=== PATIENT | male | born 1975 | race Caucasian/White ===

== ENCOUNTER 2023-07-01 09:43 | Outpatient (OUT) | payer OTHER, SELFPAY ==
[2023-07-01 10:49] LABS: Alanine Aminotransferase 28 U/L (16-63); Alkaline Phosphatase 54 U/L (46-116); Anion Gap 9.2; Aspartate Amino Transferase 16 U/L (15-37); BUN Creatinine Ratio 12.2; Bilirubin Total 0.4 mg/dL (0.2-1.0); Calcium 9.2 mg/dL (8.5-10.1); Chloride 104 mmol/L (98-107); Estimated GFR (African America >60 (>=60); Estimated GFR (Non-African Ame >60 (>=60); Globulin 3.4 g/dL; Glucose 94 mg/dL (74-106); Potassium 4.2 mmol/L (3.5-5.1); Sodium 139 mmol/L (136-145); Total Protein 7.4 g/dL (6.4-8.2)
[2023-07-01 10:50] LABS: Albumin Globulin Ratio 1.2; Chol HDL Ratio 8.3; Cholesterol 292 mg/dL (<=200); HDL Cholesterol 35 mg/dL (40-60); Triglycerides 298 mg/dL (<=150); VLDL CHOLESTEROL 59.6 mg/dL
== END 2023-07-01 09:44 | disposition home or self-care (01) ==
LOC: LAB 09:47
PROVIDERS: PCP Family Medicine; Visit Provider Family Medicine
DX: Z00.00 Encounter for general adult medical examination without abnormal findings (principal)
CPT/HCPCS: 36415; 80053; 80061

== ENCOUNTER 2025-06-30 09:26 | Outpatient (OUT) | payer OTHER, SELFPAY ==
--- NOTE | 2025-06-30 | XR_ITS ---
[address] [address] Patient Name: MOE MESSINA MRN: [id number] date: 1975 Sex: M Assigned Patient Location: RAD Current Patient Location: [facility] Accession/Order Number: [id number] Exam Date: 06/30/2025 09:45 Report Date: 06/30/2025 10:27 At the request of: JUAN JOSÉ BERNAL DO Procedure: XR shoulder RT min 2V RIGHT SHOULDER - - 4 views CLINICAL HISTORY: M25.511 pain in right shoulder COMPARISON: None FINDINGS: Joint spaces appear maintained without acute bony process. Minimal degenerative change. XR/XR shoulder RT min 2V IMPRESSION: MINIMAL DEGENERATIVE CHANGE WITHOUT ACUTE BONY PROCESS. Impression dictated by: Lalo Charles Jr., D.O. 06/30/2025 10:27 AM Dictation Location: [place] [address] Electronically authenticated by: [id number] Y Date: 06/30/2025 10:27
--- OUTSIDE RECORDS SUMMARY | 2025-06-30 09:28 | XMS_ITS | Encounter Summary ---
Author Organization [facility], [employer] Sys tem Address [id number] [address] [place] [address] Care Team Providers Care Tape Weaver Name Role Phone GeorgeJohn Primary Care Provider + [phone] Reason for Visit * Reason Onset Date Comments Med Refill 09/08/2023 Encounter Details Date Type Department Care Team (Late st Contact Info) Description 09/08/2023 Refill [facility] - Family Medicine [address] [place] [address] Clara Vasquez CMA Cigarette smoker Social History Tobacco Use Types Packs/Day Years Used Date Smoking Tobacco: Every Day Cigarettes 0.5 30 Smokeless Tobacco: Never Comments:Smoked 1 PPD for ye ars 10 years Alcohol Use Standard Drinks/Week Comments Not Currently 0 (1 standard drink = 0.6 oz pur e alcohol) Social Connection and Isolat ion Panel [NHANES] Answer Date Recorded In a typical week, how many times do you talk on the phone with family, friends, or neighbors? More than three times a week 07/09/2023 How often do you get togethe r with friends or relatives? Once a week 07/09/2023 How often do you attend chur ch or confucianism services? Never 07/09/2023 Do you belong to any clubs o r organizations such as evangelical groups, unions, fraternal or athletic groups, or school groups? No 07/09/2023 How often do you attend meet ings of the clubs or organizations you belong to? Never 07/09/2023 Are you , , di vorced, , never , or living with a partner? 07/09/2023 AUDIT-C Answer Date Recorded Q1: How often do you have a drink containing alcohol? Never 07/09/2023 Q2: How many drinks containi ng alcohol do you have on a typical day when you are drinking? Patient does not drink Q3: How often do you have si x or more drinks on one occasion? Never 07/09/2023 Overall Financial Resource Strain (CARDIA) Answe r Date Recorded How hard is it for you to pa y for the very basics like food, housing, medical care, and heating? Not hard at all 07/09/2023 PHQ-2 Answer Date Recorded Total Score 0 07/09/2023 [facility] Occupat ional Health - Occupational Stress Questionnaire Answer Date Recorded Do you feel stress - tense, restless, nervous, or anxious, or unable to sleep at night because your mind is troubled all the time - these days? Not at all 07/09/2023 Exercise Vital Sign Answer Date Recorde d On average, how many days pe r week do you engage in moderate to strenuous exercise (like a brisk walk)? 1 day 07/09/2023 On average, how many minutes do you engage in exercise at this level? 90 min 07/09/2023 PRAPARE - Transportation Answer Date Re corded In the past 12 months, has l ack of transportation kept you from medical appointments or from getting medications? No 06/21 In the past 12 months, has l ack of transportation kept you from meetings, work, or from getting things needed for daily living? No 07/09/2023 Housing Instability Answer Date Recorde d Are you worried or concerned that in the next two months you may not have stable housing that you own, rent or stay in as a part of a household? No 07/09/2023 Childcare Answer Date Recorded Do problems getting child ca re make it difficult for you to work or study? No 07/09/2023 Employment Answer Date Recorded Do you need help finding a [facility] career center and/or a training program? No 07/09/2023 Hunger Screening Answer Date Recorded Within the past 12 months we worried whether our food would run out before we got money to buy more. Never True 07/09/2023 Within the past 12 months th e food we bought just didn't last and we didn't have money to get more. Never True 07/09/2023 Purpose - Life Answer Date Recorded I have a purpose and direction in my life. Stron gly Agree 07/09/2023 Sex and Gender Information Value Date Recorded Sex Assigned at Not on file Legal Sex Male 11:58 AM EDT Gender Identity Not on file Sexual Orientation Not on file documented as of this encounter Miscellaneous Notes * Telephone Encounter - Clara Vasquez CMA - 09/08/2023 4:42 PM EST Patient needs next set up for the chantix documented in this encounter Plan of Treatment Upcoming Encounters Date Type Department Care Team (Late st Contact Info) Description 09/23/2025 10:00 AM EST Office Visit [facility] - [facility] Medicine [address] [place] [address] John Vazquez DO [address] [facility] [place] [place] [address] documented as of this encounter Visit Diagnoses Diagnosis Cigarette smoker Tobacco use disorder documented in this encounter Additional Health Concerns Assessment Noted Time PHQ-9 Depression Total Score: 0 07/09/20 23 8:34 AM EDT A Body Mass Index follow-up plan has been documented for the patient 10/03/2022 10:28 AM EST documented as of this encounter Care Teams Tape Weaver Relationship Specialty Start Date End Date John Vazquez DO [address] [facility] [place] [place] [address] PCP - General Family Medicine 10/03/22 documented as of this encounter
--- OUTSIDE RECORDS SUMMARY | 2025-06-30 09:28 | XMS_ITS | Encounter Summary ---
Author Organization [employer] Sys tem Address [id number] [address] [place] [address] Care Team Providers Care Direct Care Counselor Name Role Phone GeorgeJohn Primary Care Provider + [phone] Encounter Details Date Type Department Care Team (Late st Contact Info) Description 02/18/2025 Telephone [facility] - Family Medicine [address] [place] [phone] Mihaela Rodríguez CMA Social History Tobacco Use Types Packs/Day Years [...] often do you attend chur ch or sabianist services? Never 07/09/2023 Do you belong to any clubs o r organizations such as methodist groups, unions, fraternal or athletic groups, or [...] you are drinking? Patient does not drink 3 Q3: How often do you have si x or more drinks on one occasion? Never 07/09/2023 Overall Financial Resource Strain (CARDIA) Answe r Date Recorded How hard is it for you to pa y for the very basics like food, housing, medical care, and heating? Not hard at all 07/09/2023 PHQ-2 Answer Date Recorded Total Score 0 02/15/2025 [facility] of Occupat ional Health - Occupational Stress [...] Recorded Do you need help finding a [facility] career [facility] and/or a training program? No 07/09/2023 Hunger Screening Answer Date Recorded Within the past 12 months we worried whether our food would run out before we got money to buy more. Never True 02/15/2025 Within the past 12 months th e food we bought just didn't last and we didn't have money to get more. Never True 02/15/2025 Purpose - Life Answer Date Recorded I have a purpose and direction in my life. Stron gly Agree 07/09/2023 Sex and Gender Information Value Date Recorded Sex Assigned at Not on file Legal Sex Male 11:58 AM EDT Gender Identity Not on file Sexual Orientation Not on file documented as of this encounter Miscellaneous Notes * Telephone Encounter - Mihaela Rodríguez CMA - 02/18/2025 9:10 AM EDT ----- Message from John Vazquez DO sent at 02/17/2025 5:18 PM EDT ----- His cholesterol was high at 239. His triglycerides were also high at 175. The LDL, or bad cholesterol was also high at 154. His cardiovascular risk of heart attack and stroke in the next 10 years is intermediate risk at 9.9%. A statin is recommended. I will send 1 in if he agrees. His CMP was essentially normal ----- Message ----- From: Lab, Background User Sent: 02/15/2025 10:06 PM EDT To: John Vazquez DO documented in this encounter Plan of Treatment Upcoming Encounters Date Type Department Care Team (Late st Contact Info) Description 09/23/2025 10:00 AM EST Office Visit [facility] - Family Medicine [address] [place] [address] John Vazquez DO [address] [facility] [place] [address] documented as of this encounter Visit Diagnoses Not on filedocumented in this encounter Additional Health Concerns Assessment Noted Time PHQ-9 Depression Total Score: 0 02/16/20 25 3:56 PM EDT A Body Mass Index follow-up plan has been documented for the patient 10/03/2022 10:28 AM EST documented as of this encounter Care Teams Direct Care Counselor Relationship Specialty Start Date End Date John Vazquez DO [address] [facility] [place] [address] PCP - General Family Medicine 10/03/22 documented as of this encounter
--- OUTSIDE RECORDS SUMMARY | 2025-06-30 09:28 | XMS_ITS | Encounter Summary ---
Author Organization [facility] [employer] s tem Address [id number] [address] [place] [address] Care Team Providers Care Cupola Man Name Role Phone John Vazquez DO Primary Care Provider [phone] Encounter Details Date Type Department Care Team ([facility] Contact Info) Description 07/01/2023 [facility] [address] [place] [phone] Tiffanie Rojas CMA Preventative health care Social History Tobacco Use Types Packs/Day Years Used Date Smoking Tobacco: Every Day Cigarettes Smokeless Tobacco: Never Alcohol Use Standard Drinks/Week Comments Not Currently 0 (1 standard drink = 0.6 oz pur e alcohol) PHQ-2 Answer Date Recorded Total Score 0 11/18/2022 Childcare Answer Date Recorded Childcare Unknown 03/31/2019 Employment Answer Date Recorded Employment Unknown 03/31/2019 Sex and Gender Information Value Date Recorded Sex Assigned at Not on file Legal Sex Male 11:58 AM EDT Gender Identity Not on file Sexual Orientation Not on file documented as of this encounter Plan of Treatment Upcoming Encounters Date Type Department Care Team (Late Contact Info) Description 09/23/2025 10:00 AM EST Office Visit [facility] Internal Medicine - Family Medicine [address] [place] [phone] John Vazquez DO [address] [place] [address] documented as of this encounter Procedures Procedure Name Priority Date/Time Associated Diagnosis Comments LIPID PROFILE Routine 07/01/2023 Preventative health care COMPREHENSIVE METABOLIC PANEL Routine 07/01/2023 Preventative health care documented in this encounter Results * Comprehensive metabolic panel (07/01/2023) External Albumin 4 3.4 - 5.0 MAN UALLY TRANSCRIBED RESULTS External Alt Sgpt 28 16 - 63 MANUALLY TRANSCRIBED RESULTS External Anion Gap 9.2 MANUALLY TRANSCRIBED RESULTS External Ast 16 15 - 37 MANUALL Y TRANSCRIBED RESULTS External Blood Urea Nitrogen Bun 15 7 - 18 MANUALLY TRANSCRIBED RESULTS External Calcium Ca 9.2 8.5 - 10.1 MANUALLY TRANSCRIBED RESULTS External Chloride 104 98 - 107 MANUALLY TRANSCRIBED RESULTS External Co2 / Carbon Dioxide 30 21 - 32 MANUALLY TRANSCRIBED RESULTS External Creatinine 1.23 0.7 - 1.30 MANUALLY TRANSCRIBED RESULTS External Gfr Amer >60 >60 MANUALLY TRANSCRIBED RESULTS External Gfr Non Amer >60 >60 MANUALLY TRANSCRIBED RESULTS External Alkaline Phosphatase 54 46 - 116 MANUALLY TRANSCRIBED RESULTS External Glucose Fasting Or Random (Fbs) 94 74 - 106 MANUALLY TRANSCRIBED RESULTS External Potassium K 4.2 3.5 - 5.1 MANUALLY TRANSCRIBED RESULTS External Sodium Na 139 136 - 145 MANUALLY TRANSCRIBED RESULTS Total Bilirubin 0.4 0.2 - 1.0 MANU ALLY TRANSCRIBED RESULTS External Total Protein 7.4 6.4 - 8.2 MANUALLY TRANSCRIBED RESULTS Blood 07/01/2023 John Vazquez DO LAB BLOOD ORDERABLES Final R esult MANUALLY TRANSCRIBED RESULTS * (ABNORMAL) Lipid panel (07/01/2023) External Cholesterol 292(A) 0 - 200 MANUALLY TRANSCRIBED RESULTS External Cholesterol:Hdl 8.3(A) 4.4 - 7.1 MANUALLY TRANSCRIBED RESULTS External Hdl Cholesterol 35(A) 40 - 60 MANUALLY TRANSCRIBED RESULTS External Ldl (Calc) 198(A) 0 - 100 MANUALLY TRANSCRIBED RESULTS External Triglycerides 298(A) 0 - 150 MANUALLY TRANSCRIBED RESULTS External Very Low Lipoprotein 59.6 MANUALLY TRANSCRIBED RESULTS Blood 07/01/2023 us John Vazquez DO LAB BLOOD ORDERABLES Final R esult MANUALLY TRANSCRIBED RESULTS documented in this encounter Visit Diagnoses Diagnosis Preventative health care Routine general medical examination at a health care facility documented in this encounter Additional Health Concerns Assessment Noted Time PHQ-9 Depression Total Score: 0 11/18/19 23 4:36 PM EST A Body Mass Index follow-up plan has been documented for the patient 10/03/2022 10:28 AM EST documented as of this encounter Care Teams Cupola Man Relationship Specialty Start Date End Date John Vazquez DO [address] [facility] [place] [address] PCP - General Family Medicine 10/03/22 documented as of this encounter
--- OUTSIDE RECORDS SUMMARY | 2025-06-30 09:28 | XMS_ITS | Clinical Summary ---
Author Organization [facility] Address [id number] [address] [place] [address] Care Team Providers Care Marquetry Worker Name Role Phone John Vazquez Primary Care Provider Allergies No known active allergies Medications sildenafiL (VIAGRA) 100 mg tablet Take 1 tablet (100 mg total) by mouth daily as needed for erectile dysfunction. 9 tablet 5 5 Active rosuvastatin (CRESTOR) 5 mg tabletIndications:M ixed hyperlipidemia Take 1 tablet (5 mg total) by mouth nightly. 90 tablet 3 5 Active naproxen (NAPROSYN) 500 mg tablet TAKE 1 TABLET (500MG TOTAL) BY MOUTH IN THE MORNING AND TAKE 1 TABLET IN THE EVENING WITH MEALS 60 tablet 2 5 Active Active Problems Problem Noted Date Diagnosed Date Erectile dysfunction 07/09/2023 Lateral epicondylitis 10/03/2022 Seasonal allergies 10/03/2022 Tobacco dependence syndrome 10/03/2022 Mixed hyperlipidemia 06/26/2018 Anxiety 04/09/2017 Insomnia 08/09/2016 Obstructive sleep apnea of adult 02/19/2016 Resolved Problems Problem Noted Date Diagnosed Date Resolved Date Class 1 obesity due to exces s calories with serious comorbidity and body mass index (BMI) of 31.0 to 31.9 in adult 07/09/2023 03/21/2025 Cigarette smoker 07/09/2023 03/21/2025 Obesity with body mass index 30 or greater 10/03/2022 03/21/2025 Encounters Date Type Department Care Team Description 06/06/2025 Orders Only [facility] - Family Medicine [address] [place] [address] George John Salgado, DO Tear of right glenoid labrum, subsequent encounter (Primary Dx); Right shoulder pain, unspecified chronicity 06/02/2025 Telephone [facility] - Family Medicine [address] [place] [address] Clara Vasquez CMA 05/21/2025 Refill [facility] - Family Medicine [address] [place] [address] George John Salgado, 05/18/2025 Orders Only [facility] - [facility] [address] [place] [address] George John Salgado, Tear of right glenoid labrum, subsequent encounter (Primary Dx) 05/18/2025 [facility] [address] [place] [address] George John Salgado, DO MR shoulder right without contrast 05/13/2025 7:25 AM EDT - 05/13/2025 11:59 PM EDT Hospital Encounter [facility] - [facility] [address] [facility] [address] John Vazquez, Right shoulder pain, unspecified chronicity Discharge Disposition: Home 05/13/2025 Travel 04/25/2025 2:00 PM EDT [facility] [address] [place] [address] George John Salgado, Right shoulder pain, unspecified chronicity (Primary Dx); Paresthesia of right upper extremity 04/25/2025 Travel 04/14/2025 [facility]phone [facility] [address] [place] [address] Akhil Bartlett CMA from Last 3 Months Immunizations Immunization Administration Dates Next Due DTaP 04/14/2014 Family History Medical History Relation Name Comments No Known Problems Brother No Known Problems Daughter No Known Problems Father No Known Problems Maternal Grandmother ag e 86 in 2022 No Known Problems Mother No Known Problems Sister No Known Problems Son Relation Name Status Comments Brother Alive Daughter Alive Father Alive Maternal Grandfather Maternal Grandmother Alive Mother Alive Paternal Grandfather Paternal Grandmother Sister Alive Son Alive Social History Tobacco Use Types Packs/Day Years Used Date Smoking Tobacco: Former Cigarettes 0.5 30 Q uit: 01/18/2025 Smokeless Tobacco: Never Tobacco Cessation:Counseling Given: Not Answered Comments:Smoked 1 PPD for years 10 years Alcohol Use Standard Drinks/Week Comments Not Currently 0 (1 standard drink = 0.6 oz pur e alcohol) [facility] Utilities Answer Date Recorded In the past 12 months has e electric, gas, oil, or water company threatened to shut off services in your home? No 03/21/2025 Social Connection and Isolat ion Panel [NHANES] Answer Date Recorded In a typical week, how many times do you talk on the phone with family, friends, or neighbors? More than three times a week 07/09/2023 How often do you get togethe r with friends or relatives? Once a week 07/09/2023 How often do you attend chur ch or yazdanism services? Never 07/09/2023 Do you belong to any clubs o r organizations such as quaker groups, unions, fraternal or athletic groups, or [...] PHQ-2 Answer Date Recorded Total Score 0 04/25/2025 [facility] - Occupational Stress Questionnaire Answer Date Recorded [...] Recorded Do you need help finding a [facility] career center and/or a training program? No 07/09/2023 Hunger Screening Answer Date Recorded Within the past 12 months we worried whether our food would run out before we got money to buy more. Never True 04/25/2025 Within the past 12 months th e food we bought just didn't last and we didn't have money to get more. Never True 04/25/2025 Purpose - Life Answer Date Recorded I have a purpose and direction in my life. Stron gly Agree 07/09/2023 Sex and Gender Information Value Date Recorded Sex Assigned at Not on file Legal Sex Male 11:58 AM EDT Gender Identity Not on file Sexual Orientation Not on file Last Filed Vital Signs Vital Sign Reading Time Taken Comments Blood Pressure 128/88 04/25/2025 2:12 PM EDT Pulse 76 04/25/2025 2:12 PM EDT Temperature 36.2 C (97.2 F) 04/25/2025 2:12 PM EDT Respiratory Rate 18 04/25/2025 2:12 PM EDT Oxygen Saturation 99% 04/25/2025 2:12 PM EDT Inhaled Oxygen Concentration - - Weight 96.9 kg (213 lb 9.6 oz) 04/25/2025 2:12 P M EDT Height 175.3 cm (5' 9.02 ) 04/25/2025 2:12 PM ED T Body Mass Index 31.53 04/25/2025 2:12 PM EDT Plan of Treatment Upcoming Encounters Date Type Department Care Team (Late st Contact Info) Description 09/23/2025 10:00 AM EST Office Visit [facility] - Family Medicine [address] [place] [address] John Vazquez DO [address] [place] [address] Health Maintenance Due Date Last Done Comments Adult BMI Follow Up Plan 1994 Influenza Vaccine 06/20/2025 COVID-19 Vaccine ( season) 2025 12/25/2020 Postponed from 06/20 (Vaccine Not Available) DTaP,Tdap and Td Vaccines (2 - Tdap) 03/21/2026 04/14/2014 Postponed from 04/14 (Patient Refused) Adult BMI Screening 04/25/2026 04/25/2025 Depression Screening 04/25/2026 04/25/2025 Tobacco Screening 04/25/2026 04/25/2025 Colon Cancer Screening 3 Year Cologuard 04/13/2028 04/13/2025, 04/08/2025 Medical Devices Not on file Procedures Procedure Name Priority Date/Time Associated Diagnosis Comments MR SHOULDER RT WO CONT Routine 05/13/2025 8:55 AM EDT Right shoulder pain, unspecified chronicity COLOGUARD NON-[facility] Routine 04/08/2025 8:00 AM EDT Screen for colon cancer from Last 3 Months Results * MR shoulder right without contrast (05/13/2025 8:55 AM EDT) Anatomical Region Laterality Modality MSK, Shoulder, Upper Extremities, MSK Covera Rig ht Magnetic Resonance 05/17/2025 10:3 7 AM EDT Narrative 05/17/2025 10:48 AM EDT MR SHOULDER RT WO CONT CLINICAL INFORMATION: Shoulder pain.. COMPARISON: None. PROCEDURE: Axial, oblique coronal, and oblique sagittal long TR images of the shoulder were obtained. FINDINGS: ROTATOR CUFF AND ASSOCIATED STRUCTURES Biceps Tendon: The biceps tendon is normally situated within the bicipital groove. No complete or partial biceps tendon tear is present. Rotator cuff: There is no complete or bursal/articular sided partial rotator cuff tear. The subscapularis constituent of the rotator cuff is intact. Supraspinatus insertional tendinopathy is appreciated. Musculature: There is no muscular tear, contusion, or atrophy. Bursa: No bursal effusion or thickening is seen. OSSEOUS STRUCTURES Acromioclavicular joint: There are mild degenerative changes of the acromioclavicular joint. A type 1 acromion configuration is noted. There is lateral acromial downsloping. Bones: No Hill-Sachs, reverse Hill-Sachs, or bony Bankart lesions are seen. There are no fractures or regions of abnormal bone marrow signal intensity. GLENOHUMERAL JOINT Joint: There is no glenohumeral joint effusion. Cartilage: No focal hyaline cartilage defects are noted. Labrum: Multiple juxta labral cysts are appreciated along the posterior inferior rim. This indicates an occult posterior inferior labral tear. For example please see sequence 6 image 19 Other support structures: No capsular or ligamentous abnormality is seen. IMPRESSION: * Posterior inferior labral tear with juxta labral cyst is noted. * Supraspinatus insertional tendinopathy. Please refer to the above report for full description of all the findings. Finalized by Maryann Oneil MD on 05/17/2025 10:48 AM Procedure Note Maryann Oneil MD - 05/17/2025 MR SHOULDER RT WO CONT CLINICAL INFORMATION: Shoulder pain.. COMPARISON: None. PROCEDURE: Axial, oblique coronal, and oblique sagittal long TR images ofthe shoulder were obtained. FINDINGS: ROTATOR CUFF AND ASSOCIATED STRUCTURES Biceps Tendon: The biceps tendon is normally situated within the bicipitalgroove. No complete or partial biceps tendon tear is present. Rotator cuff: There is no complete or bursal/articular sided partialrotator cuff tear. The subscapularis constituent of the rotator cuff isintact. Supraspinatus insertional tendinopathy is appreciated. Musculature: There is no muscular tear, contusion, or atrophy. Bursa: No bursal effusion or thickening is seen. OSSEOUS STRUCTURES Acromioclavicular joint: There are mild degenerative changes of theacromioclavicular joint. A type 1 acromion configuration is noted. Thereis lateral acromial downsloping. Bones: No Hill-Sachs, reverse Hill-Sachs, or bony Bankart lesions areseen. There are no fractures or regions of abnormal bone marrow signalintensity. GLENOHUMERAL JOINT Joint: There is no glenohumeral joint effusion. Cartilage: No focal hyaline cartilage defects are noted. Labrum: Multiple juxta labral cysts are appreciated along the posteriorinferior rim. This indicates an occult posterior inferior labral tear. Forexample please see sequence 6 image 19 Other support structures: No capsular or ligamentous abnormality isseen. IMPRESSION: * Posterior inferior labral tear with juxta labral cyst is noted. * Supraspinatus insertional tendinopathy. Please refer to the abovereport for full description of all the findings. Finalized by Maryann Oneil MD on 05/17/2025 10:48 AM us John Vazquez DO [facility] MRI ORDERABLES Final Res ult * Cologuard [facility] (04/08/2025 8:00 AM EDT) EXTERNAL COLOGUARD Negative Negative 2024 3:44 PM EDT [facility] (CLIA #:[id number]) Comment: The Cologuard (TM) test was performed on this specimen. NEGATIVE TEST RESULT. A negative Cologuard result indicates a low likelihood that a colorectal cancer (CRC) or advanced adenoma (adenomatous polyps with more advanced pre-malignant features) is present. The chance that a person with a negative Cologuard test has a colorectal cancer is less than 1 in 1500 (negative predictive value >99.9%) or has an advanced adenoma is less than 5.3% (negative predictive value 94.7%). These data are based on a prospective cross-sectional study of 10,000 individuals at average risk for colorectal cancer who were screened with both Cologuard and colonoscopy. (Adelso Jacobson al, N Engl J Med 2014;370(14):1286- 1297) The normal value (reference range) for this assay is negative. COLOGUARD RE-SCREENING RECOMMENDATION: Periodic colorectal cancer screening is an important part of preventive healthcare for asymptomatic individuals at average risk for colorectal cancer. Following a negative Cologuard result, the [place] Cancer Society and U.S. Multi-Society Task Force screening guidelines recommend a Cologuard re-screening interval of 3 years. References: [place] Cancer Society Guideline for Colorectal Cancer Screening: https://www.cancer.org/cancer/ubdcq-sjxqhw-icbexm/kvolzduci-iojgcqkor-qmmoidz/ac s-rec ommendations.html.; Swapnil DK, Leilani CR, Laya OlveraK, Colorectal Cancer Screening: Recommendations for Physicians and Patients from the U.S. Multi-Society Task Force on Colorectal Cancer Screening , Am J Gastroenterology 2017; 112:2064-2305. TEST DESCRIPTION: Composite algorithmic analysis of stool DNA-biomarkers with hemoglobin immunoassay. Quantitative values of individual biomarkers are not reportable and are not associated with individual biomarker result reference ranges. Cologuard is intended for colorectal cancer screening of adults of either sex, 45 years or older, who are at average-risk for colorectal cancer (CRC). Cologuard has been approved for use by the U.S. FDA. The performance of Cologuard was established in a cross sectional study of average-risk adults aged 50-84. Cologuard performance in patients ages 45 to 49 years was estimated by sub-group analysis of near-age groups. Colonoscopies performed for a positive result may find as the most clinically significant lesion: colorectal cancer [4.0%], advanced adenoma (including sessile serrated polyps greater than or equal to 1cm diameter) [20%] or non- advanced adenoma [31%]; or no colorectal neoplasia [45%]. These estimates are derived from a prospective cross-sectional screening study of 10,000 individuals at average risk for colorectal cancer who were screened with both Cologuard and colonoscopy. (Adelso Jacobson al, N Engl J Med 2014;370(14):9070-7986.) Cologuard may produce a false negative or false positive result (no colorectal cancer or precancerous polyp present at colonoscopy follow up). A negative Cologuard test result does not guarantee the absence of CRC or advanced adenoma (pre-cancer). The current Cologuard screening interval is every 3 years. ([place] Cancer Society and U.S. Multi-Society Task Force). Cologuard performance data in a 10,000 patient pivotal study using colonoscopy as the reference method can be accessed at the following location: www.Cou[employer].T-ZONE/results. Additional description of the Cologuard test process, warnings and precautions can be found at www.[address] EnergyogDubMeNowrd.T-ZONE. Stool specimen (specimen) Rectum structure / Unknown 04/08/2025 8:00 AM EDT 04/09/2025 9:11 AM EDT John Vazquez DO LAB ORDERABLES Final Result [facility] (CLIA #:[id number]) [place] [address], [place] [phone] from Last 3 Months Insurance [employer] Care Teams Marquetry Worker Relationship Specialty Start Date End Date John Vazquez DO [address], [place] [address] PCP - General Family Medicine 10/03/22
--- OUTSIDE RECORDS SUMMARY | 2025-06-30 09:28 | XMS_ITS | Encounter Summary ---
Author Organization [facility] Address [id number] [address] [place] [address] Care Team Providers Care Belt Loop Maker Name Role Phone John Vazquez DO Primary Care Provider [phone] Reason for Visit * Reason Comments Med Refill Encounter Details Date Type Department Care Team ([facility] [address] Contact Info) Description 09/20/2022 Refill [facility] - Family Medicine [address] [place] [address] John Vazquez DO [address], [facility] [place] [address] Social History Tobacco Use Types Packs/Day Years Used Date Smoking Tobacco: Never Assessed Childcare Answer Date Recorded Childcare Unknown 03/31/2019 [...] - Family Medicine [address] [place] [place] [address] John Vazquez DO [address], [facility] [place] [address] documented as of this encounter Visit Diagnoses Not on filedocumented in this encounter Care Teams Belt Loop Maker Relationship Specialty Start Date End Date John Vazquez DO [address] [place] [address] PCP - General Family Medicine 10/03/22 documented as of this encounter
--- OUTSIDE RECORDS SUMMARY | 2025-06-30 09:28 | XMS_ITS | Patient Health Record ---
Author Organization [facility] Address [address] [place] [address] Care Team Providers Care Projects Manager Name Role Phone John Vazquez Primary Care Provider Unavailabl e Allergies No Known Allergies Reason For Referral No Information Immunizations Vaccine Route Administration Date Status Comme nts z2022 Fluzone Quad MDV (0.5m L Admin) 6mo & older Unknown 04/23/2022 Others Social History Tobacco Use: Social History Observation Description Date Details (start date - stop date) Current Smoker NA - NA Tobacco Use Question Answer Notes Are you a Current smoker How often do you smoke cigarettes Every day How many cigarettes a day do you smoke? 11-20 Are you interested in quitting? Thinking about q uitting Problems Problem Type SNOMED Code ICD Code Onset Dates Problem Status W/U Status Risk Notes Finding Tobacco user (317335671) Cigarette nicotine dependence without complication (F17.210) Active confirmed Diagnosis Acute pansinusitis (6561233) Acute non-recurrent pansinusitis (J01.40) Active confirmed Finding Body mass index 30+ - obesity (920502997) BMI 30.0-30.9,adult (Z68.30) Active confirmed Plan Of Treatment No Information Insurance Providers Payer Name Payer Address Payer Phone Subscriber Number Group Number Insured Name Patient Relationship to Insured Coverage Start Date Coverage End Date [facility] [address] [address] [place] [address] [id number] Larry MESSINA Self - patient is the insured Medical (General) History Medical History History ICD Code None
--- OUTSIDE RECORDS SUMMARY | 2025-06-30 09:28 | XMS_ITS | Encounter Summary ---
Author Organization [facility] Address [id number] [address] [place] [address] Care Team Providers Care Worship Director Name Role Phone KotaJohn marlow Primary Care Provider + [phone] Encounter Details Date Type Department Care Team (Late st Contact Info) Description 04/14/2025 Telephone [facility] - Family Medicine [address] [place] [id number] Akhil Bartlett CMA Social History Tobacco Use Types Packs/Day Years Used Date Smoking Tobacco: Former Cigarettes 0.5 30 Q uit: 01/18/2025 Smokeless Tobacco: Never Comments:Smoked 1 PPD for ye ars 10 years Alcohol Use Standard Drinks/Week Comments Not Currently 0 (1 standard drink = 0.6 oz pur e alcohol) [facility] Utilities Answer Date Recorded In the past 12 months has [employer] electric, gas, oil, or water company threatened [...] often do you attend chur ch or restorationist services? Never 07/09/2023 Do you belong to any clubs o r organizations such as jainism groups, unions, fraternal or athletic groups, or [...] PHQ-2 Answer Date Recorded Total Score 0 03/21/2025 [facility] - Occupational [...] Recorded Do you need help finding a [place] career center and/or a training program? No 07/09/2023 Hunger Screening Answer Date Recorded Within the past 12 months we worried whether our food would run out before we got money to buy more. Never True 03/21/2025 Within the past 12 months th e food we bought just didn't last and we didn't have money to get more. Never True 03/21/2025 Purpose - Life Answer Date Recorded I have a purpose and direction in my life. Tona Monsivais 07/09/2023 Sex and Gender Information Value Date Recorded Sex Assigned at Not on file Legal Sex Male 11:58 AM EDT Gender Identity Not on file Sexual Orientation Not on file documented as of this encounter Miscellaneous Notes * Telephone Encounter - Akhil Bartlett CMA - 04/14/2025 9:28 AM EDT Pt called and is done with therapy. Could you order the MRI? Or does he need a appt with you first? * Telephone Encounter - Akhil Bartlett CMA - 04/14/2025 9:28 AM EDT ----- Message from John Vazquez DO sent at 04/13/2025 10:44 PM EDT ----- His Cologuard was negative. Recheck in 3 years ----- Message ----- From: Interface - Ora In Sent: 04/13/2025 9:55 PM EDT To: John Vazquez DO I let him know his results of his Cologuard. * Telephone Encounter - John Vazquez DO - 04/14/2025 9:28 AM EDT He should come in for an appointment since he numbness and tingling to his hand his new and may need an MRI of his neck and not shoulder documented in this encounter Plan of Treatment Upcoming Encounters Date Type Department Care Team (Late st Contact Info) Description 09/23/2025 10:00 AM EST Office Visit [facility] - Family Medicine [address] [place] [address] John Vazquez DO [address] [facility] [place] [address] documented as of this encounter Visit Diagnoses Not on filedocumented in this encounter Additional Health Concerns Assessment Noted Time PHQ-9 Depression Total Score: 0 03/21/20 25 2:36 PM EDT A Body Mass Index follow-up plan has been documented for the patient 10/03/2022 10:28 AM EST documented as of this encounter Care Teams Worship Director Relationship Specialty Start Date End Date John Vazquez DO [address] [facility] [address] PCP - General Family Medicine 10/03/22 documented as of this encounter
--- OUTSIDE RECORDS SUMMARY | 2025-06-30 09:28 | XMS_ITS | Encounter Summary ---
Author Organization [facility] Address [id number] [address] [place] [address] Care Team Providers Care Lathing Supervisor Name Role Phone John Vazquez DO Primary Care Provider + [phone] Encounter Details Date Type Department Care Team (Late st Contact Info) Description 05/18/2025 Results Follow-Up [facility] - Family Medicine [address] [place] [address] John Vazquez DO [address] [place] [address] MR shoulder right without contrast Social History Tobacco Use Types Packs/Day Years Used Date Smoking Tobacco: Former Cigarettes 0.5 30 Q uit: 01/18/2025 Smokeless Tobacco: Never Comments:Smoked 1 PPD for ye ars 10 years Alcohol Use Standard Drinks/Week Comments Not Currently 0 (1 standard drink = 0.6 oz pur e alcohol) [facility] Utilities Answer Date Recorded In the past 12 months has [employer], gas, oil, or water [employer] threatened to shut off services in your [...] often do you attend chur ch or latter day services? Never 07/09/2023 Do you belong to any clubs o r organizations such as orthodox groups, unions, fraternal or athletic groups, or [...] Answer Date Recorded Total Score 0 04/25/2025 [facility] - Occupational [...] Recorded Do you need help finding a [employer] [facility] career center and/or a training program? [...] Medicine - Family Medicine [address] [address] John Vazquez DO [address] [place] [address] documented as of this encounter Visit Diagnoses Not on filedocumented in this encounter Additional Health Concerns Assessment Noted Time PHQ-9 Depression Total Score: 0 04/25/20 25 2:12 PM EDT A Body Mass Index follow-up plan has been documented for the patient 10/03/2022 10:28 AM EST documented as of this encounter Care Teams Lathing Supervisor Relationship Specialty Start Date End Date John Vazquez DO [address] [facility] [address] PCP - General Family Medicine 10/03/22 documented as of this encounter
== END 2025-06-30 09:27 | disposition home or self-care (01) ==
LOC: RAD 09:26
PROVIDERS: PCP Family Medicine; Visit Provider Physician Assistant
DX: M25.511 Pain in right shoulder (principal)
CPT/HCPCS: 73030

== ENCOUNTER 2025-09-08 10:46 | Outpatient (OUT) | payer OTHER, SELFPAY ==
--- OUTSIDE RECORDS SUMMARY | 2025-09-08 10:51 | XMS_ITS | Patient Health Record ---
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 Role Phone John Vazquez Primary Care [...] Current smoker How often do you smoke cigarettesEvery dayHow many cigarettes a day do you smoke?11-20Are you interested in quitting?Thinking about quitting Problems Problem Type SNOMED Code ICD Code Onset Dates Problem Status W/U Status Risk Notes Finding Body mass index 30+ - obesity (099597939) BMI 30.0-30.9,adult (Z68.30) ActiveconfirmedFindingTobacco user (290924051)Cigarette nicotine dependence without complication (F17.210)ActiveconfirmedDiagnosisAcute pansinusitis (1276235)Acute non-recurrent pansinusitis (J01.40)Activeconfirmed Plan Of Treatment No Information Insurance Providers Payer Name Payer Address Payer Phone Subscriber Number Group Number Insured Name Patient Relationship to Insured Coverage Start Date Coverage End Date [facility] [address] [address] [place] [id number] MAYURILarry Self - patient is the insured Medical (General) History Medical History History ICD Code None
--- NOTE | 2025-09-08 10:53 | ECG_ITS ---
[facility] Test Date: 2025-09-08 Pat Name: MOE MESSINA Department: Room: - Gender: Male Programs Manager: : 1975 Requested By: ESTEVAN HOBSON Order Number: [id number] Reading MD: NOMAN ALICEA M.D. Measurements Intervals [place] Rate: 74 P: 58 MT: 154 QRS: 34 QRSD: 89 T: 38 QT: 341 QTc: 380 Interpretive Statements SINUS RHYTHM Normal ECG No previous ECG available for comparison Electronically Signed On 09-08-2025 19:21:32 EST by NOMAN ALICEA M.D.
--- NOTE | 2025-09-08 11:19 | PM.PRESUREVA ---
History of Present Illness History of Present Illness Chief complaint: right shoulder pain Narrative: Patient presents for presurgical testing. Please see HPI from Dr. Carroll dated September 08, 2025. Review of Systems ROS Narrative REVIEW OF SYSTEMS: Negative except as stated in HPI, ten or more systems reviewed. Constitutional: No fever, chills, weakness ENT: No sore throat or epistaxis Cardiovascular: No edema, chest pain, palpitations, or activity intolerance Respiratory: No shortness of breath, cough, or wheezing Gastrointestinal: No abdominal pain, constipation, diarrhea, or vomiting Genitourinary: No dysuria or hematuria Neurological: No numbness, tingling, weakness, or headache Psychiatric: No mood changes PFSH PFS Medical History (Updated 09/08/25 @ 11:22 by Teresa Swenson NP) Cervical radiculopathy ?M54.12 - Radiculopathy, cervical region (ICD-10) Tear of right glenoid labrum ?S43.431A - Superior glenoid labrum lesion of right shoulder, initial encounter (ICD-10) Lactose intolerance ?E73.9 - Lactose intolerance, unspecified (ICD-10) High cholesterol ?E78.00 - Pure hypercholesterolemia, unspecified (ICD-10) Tendinosis of right shoulder ?M67.813 - Other specified disorders of tendon, right shoulder (ICD-10) Right shoulder pain ?M25.511 - Pain in right shoulder (ICD-10) Family History (Updated 09/08/25 @ 11:03 by Teresa Swenson NP) Other Family history of cancer Family history of diabetes mellitus Social History (Updated 09/08/25 @ 11:00 by Teresa Swenson NP) Within the past year, how often did you have a drink containing alcohol: never Score interpretation: A score less than 4 is consistent with normal alcohol consumption. Smoking status: Current every day smoker What tobacco products do you use: cigarettes Cigarettes per day: 3 Years smoked: 32 Smoking pack-years: 4.80 Non-prescribed substance use: denies use Previous occupational history: [employer] Highest level of school completed/degree received: Associate degree: occupational, technical, vocational program Meds Home Medications and Allergies Home Medications ?Medication ?Instructions ?Recorded ?Confirmed ?Type naproxen 500 mg tablet 500 mg PO Q12H 09/08/25 09/08/25 History rosuvastatin 5 mg tablet 5 mg PO DAILY 09/08/25 09/08/25 History Allergies Allergy/AdvReac Type Severity Reaction Status Date / Time cheese Allergy GERD Verified 09/08/25 10:57 lactose Allergy Abdominal Verified 09/08/25 10:57 Pain Exam Narrative Exam Narrative: Constitutional: Awake, alert, comfortable, well-appearing, nontoxic, interactive, vital signs as charted Head: Normocephalic, atraumatic Neck: Supple, normal appearance, normal range of motion, no meningeal signs, no lymphadenopathy Respiratory: No respiratory distress, breath sounds clear Cardiovascular: Regular rate and rhythm, strong and regular heart tones Skin: No rashes or induration, no lesions, only visible skin inspected Neuro: No neurological deficits, normal sensation Psychiatric: Oriented ?3, normal affect Assessment and Plan Assessment and Plan (1) Tendinosis of right shoulder: (2) Right shoulder pain: (3) Tear of right glenoid labrum: (4) Cervical radiculopathy: Plan Right shoulder arthroscopy with biceps tenodesis, labral repair, and possible rotator cuff repair scheduled with Dr. Carroll September 22, 2025.
[2025-09-08 11:24] LABS: Hematocrit 42.5 % (42.0-54.0); Hemoglobin 14.2 g/dL (14.0-18.0); Immature Granulocytes Abs Auto 0.01 10^3/uL (0.00-0.03); Immature Granulocytes Pct Auto 0.1 % (0.0-0.5); Lymphocytes Absolute Auto 2.7 10^3/uL (1.2-3.8); Mean Corpuscular HGB Conc 33.4 g/dL (29.9-35.2); Mean Corpuscular Hemoglobin 29.4 pg (25.9-34.0); Mean Corpuscular Volume 88.0 fL (80.0-94.0); Platelet Count 260 10^3/uL (150-450); Red Blood Count 4.83 10^6/uL (4.70-6.10); White Blood Count 7.0 10^3/uL (4.0-11.0)
[2025-09-08 11:42] LABS: Alanine Aminotransferase 31 U/L (16-63); Albumin Globulin Ratio 1.5; Albumin Level 4.3 g/dL (3.4-5.0); Alkaline Phosphatase 29 U/L (46-116); Anion Gap 11.4; Aspartate Amino Transferase 14 U/L (15-37); Blood Urea Nitrogen 15.0 mg/dL (7.0-18.0); Calcium 9.2 mg/dL (8.5-10.1); Carbon Dioxide 32.3 mmol/L (21.0-32.0); Chloride 104 mmol/L (98-107); Estimated GFR (African America >60 (>=60 mL/min/1.73m^2); Estimated GFR (Non-African Ame >60 (>=60 mL/min/1.73m^2); Globulin 2.8 g/dL; Glucose 90 mg/dL (74-106); Potassium 4.7 mmol/L (3.5-5.1); Sodium 143 mmol/L (136-145); Total Protein 7.1 g/dL (6.4-8.2)
== END 2025-09-08 10:47 | disposition home or self-care (01) ==
LOC: PST 10:47
PROVIDERS: PCP Family Medicine; Visit Provider Physician Assistant
DX: Z01.810 Encounter for preprocedural cardiovascular examination (principal); Z01.812 Encounter for preprocedural laboratory examination; Z01.818 Encounter for other preprocedural examination; M25.511 Pain in right shoulder
CPT/HCPCS: 36415; 80053; 85025; 93005; G0463

== ENCOUNTER 2025-09-22 11:09 | Day surgery (SDC) | payer OTHER, SELFPAY ==
--- OUTSIDE RECORDS SUMMARY | 2025-09-08 05:42 | XMS_ITS | Continuity of Care Document ---
Author Organization [facility] Address [address] [place] [address] Phone Care Team Providers Care Pastor Name Role Phone John Vazquez DO Primary Care Provider Candelario Carroll DO Attending Provider Care Teams Patient Care Team Team Status: Active Member Role/Relationship Status Dates John Vazquez DO Primary Care Provider Active Visit Care Team Team Status: Inactive Member Role/Relationship Status Dates John Vazquez DO Primary Care Provider Active Start: June 30, 2025 End: June 30, 2025Candelario Carroll DOAttrosa m ProviderActiveStart: June 30, 2025 End: June 30, 2025 Visit Care Team Team Status: Inactive Member Role/Relationship Status Dates John Vazquez DO Primary Care Provider Active Start: August 08, 2025 End: August 08, 2025Candelario Carroll DOAttending ProviderActiveStart: August 08, 2025 End: August 08, 2025 Patient Care Team Team Status: Inactive Member Role/Relationship Status Dates John Vazquez DO Primary Care Provider Active Start: September 08, 2025 End: September 08, 2025Candelario Carroll DOAttrosa m ProviderActiveStart: September 08, 2025 End: September 08, 2025 Chief Complaint and Reason for Visit Chief Complaint Admit Date [facility] DR VAZQUEZ RT SHOULDER PAIN MRI June 30, 2025 9:46am 6 WEEKS August 08, 2025 3 :09pm H & P RIGHT SHOULDER ARTHROSCOPY September 08, 2025 10:15am Reason for Visit Admit Date Glenoid labrum tear Marina 11th, 2025 9:46am Tendinosis of right shoulder June 202024 9:46am Glenoid labrum tear August 08, 2025 3 :09pm Tendinosis of right shoulder July 3:09pm Glenoid labrum tear September 08, 2025 10:15am Tendinosis of right shoulder September 082024 10:15am Allergies, Adverse Reactions, Alerts Allergen Type Severity Reaction Last Updated Verified Status No Known Allergies Allergy Unknown August 08, 2025 2:37pmYesActive Social History Smoking Status Status Start Date End Date Date of Observa tion Never smoked tobacco (finding) February 01, 2025 10:36am Observation Status Observation Response Date of Response Legal Sex Male (finding) Sex Assigned At BirthMaleDecember 1974 Problems Active Problems Problem Diagnosis/Recorded Date Onset Date Stat us Tendinosis of right shoulder June 30, 2025 9:17 am Unknown Active Influenza A November 22, 2024 3:28pm Unknown Ac tive Right shoulder pain June 29, 2025 6:45am Unknow n Active Glenoid labrum tear June 30, 2025 9:18am Unknow n Active Inactive/Resolved Problems Problem Diagnosis/Recorded Date Onset Date Stat us Hyperlipidemia December 11, 2023 10:34am Unknown Resolved Medications Medication Status Dose Units Route Directions Qty Days Refills S tart Date Stop Date End Date Reason(s) Instructions Adherence Oseltamivir (Tamiflu) 75 mg capsule Discontinued 75 MG PO Twice daily 10 5 0 November 22, 2024 12:00am February 01, 2025 9:36amRosuvastatin 5 mg qfrtdqLxwmgpkcatjd8SJIBYsccyGrbfzgxt 2023 12:00amApril 2024 9:40amMethylprednisolone (Medrol ([place])) 4 mg tablets,dose etvuRgtopwqimfsv9INeaa package xoixawfsag757Hzpwimkg 2023 12:00amFebruary 2023 9:39amPO PER PKG DIR for 6 daysCyclobenzaprine 10 mg shemrmNjrncxpcghlh85VVZAAkjch times ptiee2563Kjkoinon 2023 12:00amFebruary 2023 9:39amLidocaine 5 % adhesive patch,jdaukvpyfDtfkjljkcycp9JWCNKVSCMEOU Psovm937Qskrpjjt 2023 12:00amFebruary 2023 9:40amleave on most painful area for up to 12 hrsCyclobenzaprine 10 mg mailfpMorcew84MOJPrsgtf195 January 31, 2025 11:00pmUnknownMethylprednisolone (Medrol ([place])) 4 mg tablets,dose azzxScxocccrsrmy8HIbaf package usscwctbct091Gozhf 2024 11:00pmSeptember 2024 8:59amPO PER PKG DIR for 6 days Vital Signs Vital Reading Result Reference Range Collection Date/Time Height 69 [in_i] June 30, 2025 8:30gwTwvjag39.71 kgSeptember 2024 8:58amBMI (Body Mass Index)29.5 kg/p2Torgxbtbq 2024 8:69tvDrtzrn88 [in_i]August 08, 2025 2:09wwGgckzv28.00 kgOctober 2024 2:37pmBMI (Body Mass Index)29.9 kg/x8Aohunyg 2024 2:37pm Advance Directives Advance Directive Response Recorded Date/ Time Advance Directives No November 10:08am Insurance Providers Guarantor Larry Laura Lozada Address [address] [place], [place] [address]Contact Info.Home Phone: Coverage Status Update:2024 Payer Group Member ID Coverage Type Subscriber Relationship to Subscriber Effective Date Expiration Date MMO Id: [id number] R Shell Id: [id number] [address] [place] [address] Home Phone: Email: [email or web address] O Id: [id number] R Shell Id: [id number] [place] [address] Home Phone: Email: [email or web address] Encounters Encounter Location(s) Arrival/Admit Date Discharge/Departure Date Discharge/Departure Disposition Provider(s) Departed Physician/ Provider Office Visit -[facility] June 30, 2025 9:46am June 30, 2025 10:26am Discharged to home care or self care (routine discharge) Candelario Carroll DO Departed Physician/ Provider Office Visit -[facility] August 08, 2025 3:09pm August 08, 2025 4:05pm Discharged to home care or self care (routine discharge) Candelario Carroll DO Departed Physician/ Provider Office Visit -[facility] September 08, 2025 10:15am September 08, 2025 10:41am Discharged to home care or self care (routine discharge) Candelario Carroll DO Recent Diagnosis Onset Date Admit Date Glenoid labrum tear Unknown June 302024 9:46am Tendinosis of right shoulder Unknown Sep tem2024 9:46am Glenoid labrum tear Unknown July 3:09pm Tendinosis of right shoulder Unknown Jul 3:09pm Glenoid labrum tear Unknown August 10:15am Tendinosis of right shoulder Unknown Aug 10:15am Assessments Diagnosis Onset Date Resolution Status Admit Date Glenoid labrum tear acuteSeptember 2024 9:46amTendinosis of right shoulderacuteSeptember 2024 9:46amGlenoid labrum tearacuteOctober 2024 3:09pmTendinosis of right shoulderacuteOctober 2024 3:09pmGlenoid labrum tearacuteNovember 2024 10:15amTendinosis of right shoulderacuteNovember 2024 10:15am Plan of Treatment Author Lisa Perez [facility] HospitalAuthoredSept2024 9:26amDiscussed with the patient on his symptoms, exam, and imaging. Likely etiologies of the patient's symptoms were discussed. Patient has symptoms consistent with right shoulder tendinosis as well as a tear of the the right labrum. We discussed various treatment options. At this point we will pursue conservative management. We discussed an injection at this time and patient wishes to proceed. Under sterile condition, 1 cc of Kenalog/4 cc bupivacaine were injected into the right subacromial space. Advised he continue to work on exercises on his own. If he wishes to go to formal therapy, he can call and we will provide him with an order. We also discussed taking oral anti inflammatories. I recommend he continues to take naproxen twice a day for 2-3 weeks, then as needed after that. He will follow up in 6 weeks for reevaluation. Author Candelario Carroll [facility] HospitalAuthoredOctlogan memorial [facility] 2024 3:04pmDiscussed with patient and company on the patient's symptoms, exam, and imaging. Likely etiologies of the patient's symptoms were discussed. Patient has symptoms consistent with a cervical radiculopathy, radiating into his elbow as well as a labrum tear. We discussed various treatment options.We discussed conservative management vs surgical intervention. The patient wishes to proceed with surgery in the form of right shoulder arthroscopy with . We discussed the risks, benefits, and alternatives to surgery in general, including the potential outcomes with foregoing treatment altogether. The risks include, but are not limited to, the risk of anesthesia up to and including , infection, bleeding, tendon damage, nerve damage, vascular damage, stiffness, weakness, loss of range of motion, arthrofibrosis, failure to alleviate symptoms, worsening of symptoms, continued pain, continued mechanical symptoms, arthritic pain, post traumatic arthritis, wound healing problems, formation of cutaneous scars secondary to surgical incisions, deep venous thrombosis, pulmonary embolism, reflex sympathetic dystrophy, unforeseen complications and the need for further surgery. The specific risks inherent to shoulder surgery were discussed further. These include, but are not limited to: failure of any repair (labrum, biceps, rotator cuff), symptomatic hardware, chondrolysis, fracture, instability (glenohumeral or acromioclavicular), unforeseen complications and the need for further or revision surgery. Management of any biceps pathology was also addressed. If the long head of the biceps is substantially torn, tenotomy versus tenodesis may be performed. Specific risks of biceps cosmetic deformity and/or spasm were discussed. In the event of an irreparable rotator cuff tear, partial repair/reconstruction with dermal allograft augmentation will be considered. We discussed in detail the rehabilitation associated with this procedure, in terms of frequency and duration. We discussed the use of the sling postoperatively, and the fact that driving a motor vehicle is not advisable while in the sling. The importance of proper rehabilitation in the overall outcome of the surgery was emphasized. The amount of time needed off from activities (work, school, sports, exercise, and leisure activity) was discussed. The patient understands that in no way does surgical intervention guarantee return to activities (athletic, work, leisure, etc.) at the pre-injury level. Guarantees were neither stated nor implied. The patient understands and has appropriate expectations. We did discuss the risks and benefits of forgoing treatment altogether, and living with symptoms as they are. The patient understood and wishes to proceed. Informed consent was obtained, questions were entertained and answered to the best of my ability. Procedure: Right shoulder arthroscopy with biceps tenodesis,labral repair, and possible rotator cuff repair Antibiotics: Ancef DVT ppx: Ambulation Same Day Surgery: Yes Bed: Regular OR bed fishing pole, pegboard, Instruments needed: Arthrex rotator cuff anchor, biceps tenodesis kit, labral anchors Author Katy Haynes [facility] HospitalAuthoredNovember 2024 2:01pmDiscussed with patient and company on the patient's symptoms, exam, and imaging. Likely etiologies of the patient's symptoms were discussed. Patient has symptoms consistent with a cervical radiculopathy, radiating into his elbow as well as a labrum tear. We discussed various treatment options.We discussed conservative management vs surgical intervention. The patient wishes to proceed with surgery in the form of right shoulder arthroscopy with . We discussed the risks, benefits, and alternatives to surgery in general, including the potential outcomes with foregoing treatment altogether. The risks include, but are not limited to, the risk of anesthesia up to and including , infection, bleeding, tendon damage, nerve damage, vascular damage, stiffness, weakness, loss of range of motion, arthrofibrosis, failure to alleviate symptoms, worsening of symptoms, continued pain, continued mechanical symptoms, arthritic pain, post traumatic arthritis, wound healing problems, formation of cutaneous scars secondary to surgical incisions, deep venous thrombosis, pulmonary embolism, reflex sympathetic dystrophy, unforeseen complications and the need for further surgery. The specific risks inherent to shoulder surgery were discussed further. These include, but are not limited to: failure of any repair (labrum, biceps, rotator cuff), symptomatic hardware, chondrolysis, fracture, instability (glenohumeral or acromioclavicular), unforeseen complications and the need for further or revision surgery. Management of any biceps pathology was also addressed. If the long head of the biceps is substantially torn, tenotomy versus tenodesis may be performed. Specific risks of biceps cosmetic deformity and/or spasm were discussed. In the event of an irreparable rotator cuff tear, partial repair/reconstruction with dermal allograft augmentation will be considered. We discussed in detail the rehabilitation associated with this procedure, in terms of frequency and duration. We discussed the use of the sling postoperatively, and the fact that driving a motor vehicle is not advisable while in the sling. The importance of proper rehabilitation in the overall outcome of the surgery was emphasized. The amount of time needed off from activities (work, school, sports, exercise, and leisure activity) was discussed. The patient understands that in no way does surgical intervention guarantee return to activities (athletic, work, leisure, etc.) at the pre-injury level. Guarantees were neither stated nor implied. The patient understands and has appropriate expectations. We did discuss the risks and benefits of forgoing treatment altogether, and living with symptoms as they are. The patient understood and wishes to proceed. Informed consent was obtained, questions were entertained and answered to the best of my ability. Procedure: Right shoulder arthroscopy with biceps tenodesis,labral repair, and possible rotator cuff repair Antibiotics: Ancef DVT ppx: Ambulation Same Day Surgery: Yes Bed: Regular OR bed fishing pole, pegboard, Instruments needed: Arthrex rotator cuff anchor, biceps tenodesis kit, labral anchors Future Tests Future scheduled test information is unavailable Pending Tests Test Name Ordered Date Scheduled Date XR shoulder RT min 2V* June 29, 2025 6:45 am Future Visits Future appointment information is unavailable Future Procedures Future procedure information is unavailable Future Medications Future medication information is unavailable Patient Instructions Patient instructions are unavailable
[2025-09-08 11:12] VITALS: BP 132/90; PULSE 87; TEMP 36.2; O2SAT 97; BMI 31.8
[2025-09-22] VITALS (19 sets, daily range): BP systolic 116–157; BP diastolic 61–90; PULSE 66–92; TEMP 36.3–36.6; O2SAT 87–98; BMI 30.9
--- OUTSIDE RECORDS SUMMARY | 2025-09-22 11:12 | XMS_ITS | Clinical Summary ---
[facility] [id number] [place] [address] Care Team Providers Care Supervisor Show Operations Name Role Phone John Vazquez Damian Primary Care Provider Allergies No known active allergies Medications MedicationSigDispense QuantityRefillsLast FilledStart DateEnd DateStatus sildenafiL (VIAGRA) 100 mg tablet Take 1 tablet (100 mg total) by mouth daily as needed for erectile dysfunction. 9 tablet 5Active rosuvastatin (CRESTOR) 5 mg tablet Indications:Mixed hyperlipidemiaTake 1 tablet (5 mg total) by mouth nightly. 90 tablet 5Active naproxen (NAPROSYN) 500 mg tablet TAKE 1 TABLET (500MG TOTAL) BY MOUTH IN THE MORNING AND TAKE 1 TABLET IN THE EVENING WITH MEALS 60 tablet 5Active Active Problems ProblemNoted DateDiagnosed DateErectile cwooateayzk98/20/2023Lateral knuhrbmqghmya08/15/2022easonal odtuetvfj72/15/2022Tobacco dependence syndrome 10/03/2022Mixed xwesrqahxrfjgm10/07/3585Vxvhkbl74/21/7909Yxinecxb71/21/2016 Obstructive sleep apnea of adult02/19/2016 Resolved Problems ProblemNoted DateDiagnosed DateResolved DateClass 1 obesity due to excess calories with serious comorbidity and body mass index (BMI) of 31.0 to 31.9 in adult/igarette jsqepm68Obesity with body mass index 30 or smtlele27/11/2024 Encounters DateTypeDepartmentCare TfkuLjgqdbmemoe08/21/2025Orders Only [facility] [address] [place] [address] Ref Prov, Not In System 09/08/2025Travelfrom Last 3 Months Immunizations ImmunizationAdministration DatesNext GodHZtF0404/14/2014 Family History Medical HistoryRelationNameCommentsNo Known ProblemsBrotherNo Known Problems DaughterNo Known ProblemsFatherNo Known ProblemsMaternal Grandmotherage 86 in 2022No Known ProblemsMotherNo Known ProblemsSisterNo Known ProblemsSonRelation NameStatusCommentsBrotherAliveDaughterAliveFatherAliveMaternal Grandfather DeceasedMaternal GrandmotherAliveMotherAlivePaternal GrandfatherDeceasedPaternal GrandmotherDeceasedSisterAliveSonAlive Social History Tobacco UseTypesPacks/DayYears UsedDateSmoking Tobacco: FormerCigarettes0.530 Quit: 01/18/2025Smokeless Tobacco: Never Tobacco Cessation:Counseling Given: Not Answered Comments:Smoked 1 PPD for years 10 years Alcohol UseStandard Drinks/WeekCommentsNot Currently0 (1 standard drink = 0.6 oz pure alcohol)[facility] UtilitiesAnswerDate RecordedIn the past 12 months has the [employer], gas, oil, or water [employer] threatened to shut off services in your home?No03/21/2025Social Connection and Isolation PanelAnswerDate RecordedIn a typical week, how many times do you talk on the phone with family, friends, or neighbors?More than three times a week07/09/2023How often do you get together with friends or relatives?Once a week07/09/2023How often do you attend jehovah's witness or congregational services?Never07/09/2023o you belong to any clubs or organizations such as jehovah's witness groups, unions, fraternal or athletic groups, or school groups?No 07/09/2023How often do you attend meetings of the clubs or organizations you belong to?Never07/09/2023re you , , , , never , or living with a partner?Hubqnns7007/09/2023UDIT-CAnswerDate RecordedQ1: How often do you have a drink containing alcohol?Never07/09/2023Q2: How many drinks containing alcohol do you have on a typical day when you are drinking? Patient does not drink07/09/2023Q3: How often do you have six or more drinks on one occasion?Never07/09/2023Overall Financial Resource Strain (CARDIA)AnswerDate RecordedHow hard is it for you to pay for the very basics like food, housing, medical care, and heating?Not hard at all07/09/2023HQ-2AnswerDate RecordedTotal Pyzlq173FinDeaconess [facility] and [facility] of [facility] - Occupational Stress QuestionnaireAnswerDate RecordedDo you feel stress - tense, restless, nervous, or anxious, or unable to sleep at night because yourmind is troubled all the time - these days?Not at all07/09/2023Exercise Vital SignAnswerDate RecordedOn average, how many days per week do you engage in moderate to strenuous exercise (like a brisk walk)?1 day07/09/2023On average, how many minutes do you engage in exercise at this level?90 min07/09/2023RAPARE - TransportationAnswerDate RecordedIn the past 12 months, has lack of transportation kept you from medical appointments or from getting medications?No07/09/2023In the past 12 months, has lack of transportation kept you from meetings, work, or from getting things needed for daily living?No07/09/2023Housing InstabilityAnswerDate RecordedAre you worried or concerned that in the next two months you may not have stable housing that you own, rent or stay in as a part of a household?No07/09/2023 ChildcareAnswerDate RecordedDo problems getting early childhood lead teacher make it difficult for you to work or study?No07/09/2023EmploymentAnswerDate RecordedDo you need help finding a local career center and/or a training program?No07/09/2023Hunger ScreeningAnswerDate RecordedWithin the past 12 months we worried whether our food would run out before we got money to buy more.Never True04/25/2025Within the past 12 months the food we bought just didn't last and we didn't have money to get more.Never True04/25/2025Purpose - LifeAnswerDate RecordedI have a purpose and direction in my life.Strongly Agree07/09/2023Sex and Gender InformationValueDate RecordedSex Assigned at BirthNot on fileLegal SexMale 05/25/2015 11:58 AM EDTGender IdentityNot on fileSexual OrientationNot on file Last Filed Vital Signs Vital SignReadingTime TakenCommentsBlood Hzapwgkq215/8804/25/2025 2:12 PM EDT Fkcot003804/25/2025 2:12 PM FIEDqttqyfqtoc35.2 ??C (97.2 ??F)04/25/2025 2:12 PM EDTRespiratory Jdpc228804/25/2025 2:12 PM EDTOxygen Muayzociok08%04/25/2025 2:12 PM EDTInhaled Oxygen Concentration--Ihibzz54.9 kg (213 lb 9.6 oz)04/25/2025 2:12 PM KUUWfzyfn857.3 cm (5' 9.02 )04/25/2025 2:12 PM EDTBody Mass Index31.53 04/25/2025 2:12 PM EDT Plan of Treatment DateTypeDepartmentCare Team (Latest Contact Info)Yffkgmkdlis51/09/2025 10:15 AM ESTAppointment [facility] [address] [place] [phone] S/P arthroscopy of right lqivaein15/17/2025 11:00 AM ESTOffice Visit [facility] [address] [place] [phone] John Vazquez, DO [address] [place] [address] Health MaintenanceDue DateLast DoneCommentsAdult BMI Follow Up Plan1994 COVID-19 Vaccine (2 - season)/TaP,Tdap and Td Vaccines (2 - Tdap)Postponed from 04/14/2024 (Patient Refused)Adult BMI Qfdwzauap75/04/2025Depression Fajoixzyx15/07/2026 04/25/2025Tobacco Hmxrsxnln26olon Cancer Screening 3 Year Tqvfgyeqn69, 04/08/2025Influenza YcnvolwTusgttcke05/17/2025 Medical Devices Not on file Procedures Procedure NamePriorityDate/TimeAssociated DiagnosisCommentsECG 12-LEADRoutine 09/08/2025 8:01 AM ESTCOLOGUARD NON-DDHHGGEQJNejoebt25/20/2025 8:00 AM EDT Screen for colon cancer from Last 3 Months or Most Recently Relevant to Health Maintenance Results * ECG 12 lead (09/08/2025 8:01 AM EST) Narrative Authorizing ProviderResult TypeResult StatusNot In System Ref ProvECG ORDERABLES Final ResultPerforming OrganizationAddressCity/State/ZIP CodePhone Number MANUALLY TRANSCRIBED RESULTS * Cologuard Non-[facility] (04/08/2025 8:00 AM EDT)ComponentValueRef RangeTest MethodAnalysis TimePerformed AtPathologist SignatureEXTERNAL COLOGUARDNegative Fhyactmh40/25/2025 3:44 PM EDTEXACT [employer] (CLIA #:[id number]) Comment: The Cologuard (TM) test was performed [...] (Adelso Jacobson al, N Engl J Med 2014;370(14):7196-5256) The normal value (reference range) for this assay is negative. COLOGUARD RE-SCREENING RECOMMENDATION: Periodic colorectal cancer screening is an important part ofpreventive healthcare for asymptomatic individuals at average risk for colorectal cancer. Followinga negative Cologuard result, the [place] Cancer Society and U.S. Multi-Society Task Force screening guidelines recommend a Cologuard re-screening interval of 3 years. References: [place] [employer] Society Guideline for Colorectal Cancer Screening: https://www.cancer.or g/cancer/vkzai-dtbdpl-kvebif/qtfrlqhgp-pbzbxrfpe-fgdyohq/acs-recommendations.htm keyshawn; Swapnil CARDONA, Leilani SLATER, Laya BLANCO, Colorectal Cancer Screening: Recommendations for Physicians and Patients from the U.S. Multi-Society Task Force on Colorectal Cancer Screening , Am J Gastroenterology 2017; 112:4945-2680. TEST DESCRIPTION: Composite algorithmic analysis of stool DNA-biomarkers with hemoglobin immunoassay. ?? Quantitative values of individual biomarkers are not reportable and are not associated with individual biomarker result reference ranges. Cologuard is intended for colorectal cancer screening ofadults of either sex, 45 years or older, [...] (Adelso Jacobson al, N Engl J Med 2014;370(14):1164-4850.) Cologuard may produce a false negative or false positive result (no colorectal cancer or precancerous polyp present at colonoscopy follow up). A negative Cologuard test result does not guarantee the absence of CRC or advanced adenoma (pre-cancer). The current Cologuard screening interval is every 3 years. ([place] Cancer Society and U.S. Multi-Society Task Force). Cologuard performance data in a 10,000 patient pivotal study using colonoscopy as the reference method can be accessed at the following location: www.Flatpebble.ugichem/results. Additional description of the Cologuard test process, warnings and precautions can be found at www.cologDry Luberd.com. Specimen (Source)Anatomical Location / LateralityCollection Method / Volume Collection TimeReceived TimeStool specimen (specimen)Rectum structure / Unknown 04/08/2025 8:00 AM EDT04/09/2025 9:11 AM EDT Narrative Authorizing ProviderResult TypeResult StatusDendaquan Vazquez DOLAB ORDERABLES Final ResultPerforming OrganizationAddressCity/State/ZIP CodePhone Number [facility] (CLIA #:[id number]) [place] [address], from Last 3 Months or Most Recently Relevant to Health Maintenance Insurance Care Teams Team MemberRelationshipSpecialtyStart DateEnd Date John Vazquez DO [address] [place] [address] PCP - GeneralFamily Urwepjcm15/15/22
--- OUTSIDE RECORDS SUMMARY | 2025-09-22 11:12 | XMS_ITS | Encounter Summary ---
Author Organization [facility] Address [id number] [place] [address] Care Team Providers Care Potato Loader Name Role Phone John Vazquez Primary Care Provider + [phone] Encounter Details DateTypeDepartmentCare Team (Latest Contact Info)Rvvszzedfoo92/21/2025Orders Only [facility] [address] [place] [phone] Ref Prov, [place] [address] Social History Tobacco UseTypesPacks/DayYears UsedDateSmoking Tobacco: FormerCigarettes0.530 Quit: 01/18/2025Smokeless Tobacco: Never Comments:Smoked 1 PPD for ye ars 10 years Alcohol UseStandard Drinks/WeekCommentsNot Currently0 (1 standard drink = 0.6 oz pure alcohol)[facility] UtilitiesAnswerDate RecordedIn the past 12 months has the electric, gas, oil, or water company threatened to shut off services in your home?No03/21/2025Social Connection and Isolation PanelAnswerDate RecordedIn a typical week, how many times do you talk on the phone with family, friends, or neighbors?More than three times a week07/09/2023How often do you get together with friends or relatives?Once a week07/09/2023How often do you attend anabaptism or confucianist services?Never3Do you belong to any clubs or organizations such as anabaptism groups, unions, fraternal or athletic groups, or school groups?No 07/09/2023How often do you attend meetings of the clubs or organizations you belong to?Never09/20/2023Are you , , , , never , or living with a partner?Ymgvxzw4707/09/2023UDIT-CAnswerDate RecordedQ1: How often do you have a [...] care, and heating?Not hard at all07/09/2023HQ-2AnswerDate RecordedTotal Kbwma028Finjordan [facility] [place] of Occupational Health - Occupational Stress QuestionnaireAnswerDate [...] or from getting things needed for daily living?07/09/2023Housing InstabilityAnswerDate RecordedAre you worried or concerned that in the next two months you may not have stable housing that you own, rent or stay in as a part of a household?No07/09/2023 ChildcareAnswerDate RecordedDo problems getting children's minister make it difficult for you to work or study?07/09/2023EmploymentAnswerDate RecordedDo you need help finding a local career center and/or a training program?07/09/2023Hunger ScreeningAnswerDate RecordedWithin the past 12 months we [...] EDTGender IdentityNot on fileSexual OrientationNot on file documented as of this encounter Plan of Treatment DateTypeDepartmentCare Team (Latest Contact Info)Rhzbnoaspem68/09/2025 10:15 AM ESTAppointment [facility] [address] [place] [address] S/P arthroscopy of right syuebljv78/17/2025 11:00 AM ESTOffice Visit [facility] [address] [place] [address] John Vazquez DO [address], [facility] [place] [address] documented as of this encounter Procedures Procedure NamePriorityDate/TimeAssociated DiagnosisCommentsECG 12-LEADRoutine 09/08/2025 8:01 AM ESTdocumented in this encounter Results * ECG 12 lead (09/08/2025 8:01 AM EST) Narrative Authorizing ProviderResult TypeResult StatusNot In System Ref ProvECG ORDERABLES Final ResultPerforming OrganizationAddressCity/State/ZIP CodePhone Number MANUALLY TRANSCRIBED RESULTS documented in this encounter Visit Diagnoses Not on filedocumented in this encounter Additional Health Concerns AssessmentNoted TimePHQ-9 Depression Total Score: 2:12 PM EDTA Body Mass Index follow-up plan has been documented for the mzlgphq0010/03/2022 10:28 AM ESTdocumented as of this encounter Care Teams Team MemberRelationshipSpecialtyStart DateEnd Date Jhon Vazquez DO [address] [place] [address] PCP - Generalmily Pmtvzcbl29/15/22documented as of this encounter
--- OUTSIDE RECORDS SUMMARY | 2025-09-22 11:12 | XMS_ITS | Encounter Summary ---
Author Organization [employer] Address [id number] [place] [address] Care Team Providers Care Paleontological Helper Name Role Phone BarryJohn bardales Primary Care Provider + [phone] Encounter Details DateTypeDepartmentCare Team (Latest Contact Info)Scoihhpnxgi88/20/2025Travel Social History Tobacco UseTypesPacks/DayYears UsedDateSmoking Tobacco: FormerCigarettes0.530 Quit: 01/18/2025Smokeless Tobacco: Never Comments:Smoked 1 PPD for ye ars 10 years Alcohol UseStandard Drinks/WeekCommentsNot Currently0 (1 standard drink = 0.6 oz pure alcohol)[facility] UtilitiesAnswerDate RecordedIn the past 12 months has the electric, gas, oil, or water [employer] threatened to shut off services in your home?No03/21/2025Social Connection and Isolation PanelAnswerDate RecordedIn a typical week, how many times do you talk on the phone with family, friends, or neighbors?More than three times a week07/09/2023How often do you get together with friends or relatives?Once a week07/09/2023How often do you attend advent or anglican services?Never07/09/2023o you belong to any clubs or organizations such as advent groups, unions, fraternal or athletic groups, or school groups?No 07/09/2023How often do you attend meetings of the clubs or organizations you belong to?Never07/09/2023re you , , , , never , or living with a partner?Ezmlymc0907/09/2023UDIT-CAnswerDate RecordedQ1: How often do you have a [...] care, and heating?Not hard at all07/09/2023HQ-2AnswerDate RecordedTotal Mbrgj945Finjordan valley [facility] [place] of Occupational Health - Occupational Stress QuestionnaireAnswerDate [...] of a household?No07/09/2023 ChildcareAnswerDate RecordedDo problems getting child's nurse make it difficult for you to work [...] Plan of Treatment DateTypeDepartmentCare Team (Latest Contact Info)Dmskgplcwvj34/09/2025 10:15 AM ESTAppointment [facility] [address] [place] [address] S/P arthroscopy of right dyzfpnpn43/17/2025 11:00 AM ESTOffice Visit [facility] [address] [place] [address] John Vazquez DO [address] [place] [address] documented as of this encounter Visit Diagnoses Not on filedocumented in this encounter Additional Health Concerns AssessmentNoted TimePHQ-9 Depression Total Score: 2:12 PM EDTA Body Mass Index follow-up plan has been documented for the xwnuurx7810/03/2022 10:28 AM ESTdocumented as of this encounter Care Teams Team MemberRelationshipSpecialtyStart DateEnd Date John Vazquez DO [address] [place] [address] PCP - GeneralFamily Vvoqmhvn64/15/22documented as of this encounter
--- OUTSIDE RECORDS SUMMARY | 2025-09-22 11:13 | XMS_ITS | Patient Health Record ---
Author Organization [facility] Address [address] [place] [address] Care Team Providers Care Hydramatic Mechanic Name Role Phone John Vazquez Primary Care [...] Finding Body mass index 30+ - obesity (217447876) BMI 30.0-30.9,adult (Z68.30) ActiveconfirmedFindingTobacco user (826919402)Cigarette nicotine dependence without complication (F17.210)ActiveconfirmedDiagnosisAcute pansinusitis (7747802)Acute non-recurrent pansinusitis (J01.40)Activeconfirmed Plan Of Treatment No Information Insurance Providers Payer Name Payer Address Payer Phone Subscriber Number Group Number Insured Name Patient Relationship to Insured Coverage Start Date Coverage End Date [facility] [place] [address] [address] [place] [phone] [id number] MAYURILarry Self - patient is the insured Medical (General) History Medical History History ICD Code None
[2025-09-22 11:18] LABS: Hematocrit 45.1 % (42.0-54.0); Hemoglobin 15.3 g/dL (14.0-18.0); Immature Granulocytes Abs Auto 0.01 10^3/uL (0.00-0.03); Immature Granulocytes Pct Auto 0.1 % (0.0-0.5); Lymphocytes Absolute Auto 2.6 10^3/uL (1.2-3.8); Mean Corpuscular HGB Conc 33.9 g/dL (29.9-35.2); Mean Corpuscular Hemoglobin 30.0 pg (25.9-34.0); Mean Corpuscular Volume 88.4 fL (80.0-94.0); Platelet Count 258 10^3/uL (150-450); Red Blood Count 5.10 10^6/uL (4.70-6.10); White Blood Count 7.4 10^3/uL (4.0-11.0)
[2025-09-22] MEDS: CEFAZOLIN SODIUM/DEXTROSE,ISO 2 GM/50 ML PIGGYBACK IV (12:18)
[2025-09-22] MEDS: BUPIVACAINE HCL 0.5%/EPINEPHRINE 1:200,000 PF 10 ML VIAL INJ (12:56)
[2025-09-22] MEDS: EPINEPHRINE HCL PF 1 MG/ML AMPULE 3 MG INJ (13:22)
--- NOTE | 2025-09-22 13:43 | PC.NURSE ---
(1201) Final timeout completed. Patient placed in supine position with head of bed elevated. O2 applied at 2l/min via nc. Patient placed on monitor. (1202) Patient medicated per Dr. Luis via IV. (1206) Right shoulder prepped per Dr. Luis. (1207) Right interscalen landmarked per Dr. Luis via ultrasound. (1209) Right shoulder injected. (1211) Right shoulder interscalene block completed. Patient tolerated it well. See posted vital signs.
--- NOTE | 2025-09-22 14:18 | W.PM.OPNOTE ---
Surgery Operative Note Operative Note Procedure Date: 09/22/25 Pre-op Diagnosis: Right shoulder superior labral tear, right biceps tenosynovitis, rotator cuff syndrome Post-op Diagnosis: same as pre-op Procedures performed: 1. Right shoulder arthroscopic superior labral repair 2. Right shoulder arthroscopic biceps tenodesis 3. Right shoulder arthroscopic subacromial decompression 4. Right shoulder arthroscopic major synovectomy and debridement Anesthesia: ALEKSANDAR Primary Surgeon: Candelario Carroll Complications: none Estimated blood loss (mL): 10 Specimens: none Drains: none Indications for Procedures: Larry is a 49-year-old male who is seen outpatient for chronic right shoulder pain. He failed conservative management. MRI was obtained which revealed tearing of his superior labrum and biceps tenosynovitis. He did also have partial tearing of his rotator cuff musculature. We discussed continued conservative management versus surgical intervention. Risks, benefits, complications, procedure detail, convalescence, reasonable expectations were discussed in length. All questions were answered. Patient wishes to pursue surgical intervention, and consent was obtained. Patient was scheduled for surgery. Detailed description of Procedure: Patient was seen in the preoperative area and the correct procedure and laterality was confirmed. A peripheral nerve block was performed by anesthesia. Patient was then brought back to the operative suite. Patient then underwent anesthesia and positioned on her nonoperative side. All bony prominences were well-padded. An axillary roll was placed under the nonoperative arm. The operative extremity was prepped and draped in normal sterile fashion. Patient received preoperative antibiotics. A timeout was performed. Procedure began by making a standard posterior portal on the operative shoulder. The arthroscope was inserted into the glenohumeral joint. A diagnostic shoulder arthroscopy was performed. Glenoid surface: Grade 1-2 Humeral head: Grade 1 with no focal defects Biceps anchor: Torn and unstable Biceps tendon: Erythema with no definitive tear Superior labrum: Significant fraying with displaced tear of the superior labrum from 10:00 to 1:00 Anterior labrum: Degenerative tearing Posterior labrum: Degenerative tearing Rotator cuff underside: No appreciative tears seen Synovium: No significant synovitis Given the pathology, it was found that the patient would benefit from a biceps tenodesis. Using the Loop N' Valentin technique, suture was passed around the proximal biceps tendon and was then punctured through just distal to this. The biceps tendon was tenotomized and anchored using a Arthrex 4.75 mm Swivellock anchor. Subscapularis tendon was found to be intact. There was mild degeneration of the glenohumeral joint. A thorough debridement was performed of the glenohumeral joint including the labrum, capsule, synovium, biceps tendon stump, and rotator cuff tendons. Next, it was felt appropriate to repair the superior labrum. A percutaneous portal was made for the anchors of the superior labrum. This was sequentially dilated and a Fibertak anchor guide was placed. Three 1.9 mm Fibertak anchors were placed in the superior aspect of the labrum with anatomic repair of the tissue. Final arthroscopic images were taken. Next, the arthroscope was inserted into the subacromial space and a subacromial bursectomy was performed. The rotator cuff was meticulously inspected and no tear was seen. Attention was then turned to the undersurface of the acromion. Soft tissue dissection was performed using an arthroscopic ablator. Next, a jana was used to perform a subacromial decompression. End result was smooth contoured surface of the inferior acromion and improved space of the subacromial space. Final arthroscopic images were taken. Arthroscopy fluid was then suctioned from the joint and subacromial space. Portals were closed using 4-0 nylon suture. Portals were then dressed with Xeroform, 4 x 4's, and foam tape. A Cryocuff was then placed on the operative shoulder and the operative arm was placed in a sling. Patient was then awoken from anesthesia and transported to PACU in stable condition. All counts were correct. Case was clean. No complications were encountered throughout the procedure. Disposition: Patient will be discharged from PACU to home. Postoperative pain medications have been prescribed. Patient will be non-weightbearing on the operative extremity. Patient will follow-up in office in 2 weeks for suture removal and reevaluation. Patient will follow the superior labral repair rehab protocol Candelario Carroll DO Retail Business Manager: Carol Villanueva
[2025-09-22] MEDS: HYDROMORPHONE HCL 0.5 MG/0.5 ML SYRINGE IV ×2 (14:26→14:44)
--- NOTE | 2025-09-22 14:30 | PC.NURSE ---
1428 Dr Luis states he may have a tightness in the chest from the nerve block and explained how the block works. Vitals are stable. Patient states he feels pressure not so much pain. Verbalizes understanding of Dr. Luis's explantation.
--- NOTE | 2025-09-22 14:59 | PC.NURSE ---
Patient verbalizes pain improvement ater this last dose of pain medication
--- NOTE | 2025-09-22 15:51 | PC.NURSE ---
REMVIEWED DISCHARGE INSTRUCTIONS WITH PATIENT AND HIS . BOTH VERBALIZE UNDERSTANDING AND PATIENT DISCHARGED IN STABLE CONDITION AT TIS TIME
== END 2025-09-22 15:45 | disposition home or self-care (01) ==
PROVIDERS: Anesthesiology; PCP Family Medicine; Visit Provider Physician Assistant
PROC: (CPT 1630; principal; 2025-09-22 12:30)
DX: S43.431A Superior glenoid labrum lesion of right shoulder, initial encounter (principal); M75.21 Bicipital tendinitis, right shoulder; M75.101 Unspecified rotator cuff tear or rupture of right shoulder, not specified as traumatic; M25.511 Pain in right shoulder; F17.210 Nicotine dependence, cigarettes, uncomplicated; M54.12 Radiculopathy, cervical region; G47.33 Obstructive sleep apnea (adult) (pediatric); E78.5 Hyperlipidemia, unspecified; K21.9 Gastro-esophageal reflux disease without esophagitis
CPT/HCPCS: 29807; 29822; 29828; 36415; 64415; 85025; C1713; J0131; J0690; J1100; J1171; J1885; J2250; J2405; J2704; J2795; J3010